=== PATIENT | male | born 1945 | race American Indian/Alaskan Native ===

== ENCOUNTER 2018-08-12 13:31 | Emergency (ER) | payer MEDICARE, OTHER ==
[2018-08-12] MEDS ORDERED: CALCIUM CHLORIDE IV ONE (13:55)
[2018-08-12] MEDS ORDERED: ADRENALIN ONE (13:55)
[2018-08-12] MEDS ORDERED: D50W (25GM) Syringe IV ONE ×3 (13:55→14:14)
[2018-08-12] MEDS ORDERED: ACTIVASE ONE ×2 (14:02→16:40)
[2018-08-12] MEDS ORDERED: HumuLIN R ONE (14:14)
[2018-08-12] MEDS ORDERED: HumuLIN R IV ONE (14:15)
--- NOTE | 2018-08-12 14:35 | Emergency Department Report ---
ED General Adult HPI - General Chief complaint: Dyspnea/Respdistress Stated complaint: SEUN Time Seen by Provider: 08/12/18 13:43 Source: patient, EMS (verbal report received from EMS.ems notes not available at time of chart dictation) Mode of arrival: Stretcher Limitations: Physical Limitation - History of Present Illness Initial comments: This is a 73-year-old gentleman. The patient is not known to this provider previously. Patient apparently had a suprapubic prostatectomy performed last month, at the [facility]. He reportedly has a history of hypertension. He presents to the emergency room today with a complaint of painless shortness of breath. It started this morning, is constant, started suddenly. The patient denies headache, neck pain, chest pain, abdominal pain, hematemesis, bright red blood per rectum. Upon arrival to the emergency room, patient presents in near extremist, tachycardic, jugular venous distention, markedly hypotensive. He has clear breath sounds bilaterally. Abdomen is soft with no rebound, guarding or peritoneal signs. Stat bedside ultrasound shows no large pericardial effusion, hyperdynamic ventricles, and what appears to be a dilated right ventricle/right atrium. Bedside ultrasound shows no free fluid in the right upper quadrant, left upper quadrant, subxiphoid region, or suprapubic region. I had a very high index of suspicion for massive pulmonary embolism, and recommended emergent CT scan of the chest to exclude large pulmonary embolus. I also requested a stat vascular surgery consult to assess patient's suitability for catheter directed thrombolysis. Shortly thereafter, the patient decompensated and arrested. He stopped breathing, and became pulseless. The patient was intubated by myself. High quality CPR is initiated. Standard ACLS medications are administered. Given high suspicion for large pulmonary embolus him, patient treated empirically with 10 mg of alteplase, followed by standard infusion of 90 mg. CPR continues, standard ACLS medications continue. Patient received CPR for almost 25 minutes. Unfortunately, pulses could not be reobtained, and resuscitation efforts were terminated. Patient's is informed. -: Sudden, This morning Severity scale (0 -10): 0 Consistency: constant Improves with: none Worsens with: none Associated Symptoms: malaise, shortness of breath, weakness - Related Data Allergies Allergy/AdvReac Type Severity Reaction Status Date / Time No Known Allergies Allergy Verified 08/12/18 14:16 ED Review of Systems ROS: Stated complaint: SEUN Other details as noted in HPI Comment: Unobtainable due to pts medical conditions Constitutional: malaise, weakness Respiratory: shortness of breath Cardiovascular: denies: chest pain Gastrointestinal: denies: abdominal pain, hematemesis, melena, hematochezia Neurological: weakness ED Past Medical Hx - Past Medical History Hx Hypertension: Yes Hx Diabetes: Yes - Social History Smoking Status: Former Smoker ED Physical Exam - General Limitations: Physical Limitation General appearance: alert, anxious, in distress - Head Head exam: Present: atraumatic, normocephalic - Eye Eye exam: Present: normal appearance, EOMI - ENT ENT exam: Present: normal exam, normal orophraynx, mucous membranes moist, normal external ear exam - Neck Neck exam: Present: normal inspection, full ROM - Respiratory Respiratory exam: Present: normal lung sounds bilaterally, respiratory distress. Absent: wheezes, rales, rhonchi, stridor - Cardiovascular Cardiovascular Exam: Present: normal rhythm, tachycardia, normal heart sounds, JVD (5-6 cm of jugular venous distention). Absent: systolic murmur, diastolic murmur, rubs, gallop - GI/Abdominal GI/Abdominal exam: Present: soft, normal bowel sounds, other (surgical sutures are noted on the suprapubic region. There is a Finch catheter in place draining muddy appearing urine). Absent: distended, tenderness, guarding, rebound, rigid, pulsatile mass - Rectal Rectal exam: Present: deferred - exam: Present: normal inspection External exam: Present: normal external exam - Extremities Exam Extremities exam: Present: normal inspection, other (2+ pulses noted in the bilateral upper, lower extremities. Compartments soft. No long bony tenderness. The pelvis is stable.). Absent: calf tenderness (there is no palpable cord. There is negative Homans sign.) - Back Exam Back exam: Present: normal inspection. Absent: CVA tenderness (R), CVA tenderness (L), paraspinal tenderness - Neurological Exam Neurological exam: Present: alert, other (there is no facial droop, the tongue is midline, extraocular movements are intact bilaterally. There is 5/5 strength bilateral upper, lower extremities.) - Psychiatric Psychiatric exam: Present: anxious - Skin Skin exam: Present: warm, dry, intact, normal color. Absent: rash ED Course Vital Signs 08/12/18 13:43 Respiratory 29 H Rate O2 Sat by Pulse 100 Oximetry - Reevaluation(s) Reevaluation #1: 08/12/18 14:38 patient with b/l jvd - Central Line Placement Right Femoral Consent Obtained: emergent situation Time Out Performed: No (emergency situation) MD Prep: mask, gloves Central Line Prep: Povidone-Iodine 1% Ultrasound Used for Placement: Yes Central Line Lumen Inserted: triple Bloods Obtained for Lab: No Complications: other Additional Comments: Femoral vein cannulated, guidewire advanced, without difficulty, however, after dilation, triple-lumen catheter not able to be advanced, therefore, procedure aborted. - Intubation Time Out Performed: No (emergency situation) Laryngoscope: fiberoptic video scope Size: 4 Assist Device Used: fiberoptic device ET Tube Size: 7.5 Tube Secured Depth (cm): 23 Tube Secured Location: teeth Tube Placement Confirmation: visualized tube passing t, equal breath sounds bilat, no breath sounds over epi, confirmation by capnometr Patient Tolerated Procedure: other Intubation Complications: difficult intubation ED Medical Decision Making - Lab Data Vital Signs 08/12/18 13:43 Respiratory 29 H Rate O2 Sat by Pulse 100 Oximetry - Medical Decision Making Differential diagnosis, including but not limited to: Pulmonary embolism, pneumonia, bacteremia, sepsis, acute coronary syndrome Critical Care Time: Yes Critical care time in (mins) excluding proc time.: 35 Critical care attestation.: If time is entered above; I have spent that time in minutes in the direct care of this critically ill patient, excluding procedure time. ED Disposition Clinical Impression: Cardiac arrest, Dyspnea Disposition: DC-20 Is pt being admited?: No Does the pt Need Aspirin: No Condition: Undetermined
[2018-08-12] MEDS ORDERED: ACTIVASE IV ONE (16:40)
== END 2018-08-12 17:14 ==
LOC: ED 13:31
DX: I46.9 Cardiac arrest, cause unspecified (principal); I10 Essential (primary) hypertension; E11.9 Type 2 diabetes mellitus without complications; Z87.891 Personal history of nicotine dependence
CPT/HCPCS: 31500; 36556; 82962; 92950; 96374; 96375; 99291; J0171; J2997; J1815